=== PATIENT | female | born 1995 | race African-American/Black ===

== ENCOUNTER 2016-03-07 12:06 | Emergency (ER) | payer OTHER ==
[~2016-03-07] VITALS: Ht 157.5 cm; Wt 75.9 kg
--- NOTE | ~2016-03-07 | EKG ---
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
[~2016-03-07 12:06] MED LIST: ACCUNEB SO1.25 MG/1 INH; CERAVE237 ML TP; HYDROXYZINE HCL10 M1 PO; IBUPROFEN 400400 M2 PO; IBUPROFEN 800800 M1 PO; NAPROSYN500 MG PO; TIZANIDINE HCL4 MG PO; TORADOL 10 MG T10 MG PO; TRIAMCINOLONE A80 G2 TOP; ULTRAM 50MG TAB50 MG PO
[2016-03-07] MEDS ORDERED: TRINATE TABLET1 TAB PO (12:32)
[2016-03-07] MEDS ORDERED: AMOXICILLIN 50500 MG PO (12:32)
[2016-03-07 12:52] LABS: URINE BILIRUBIN NEGATIVE (Negative); URINE BLOOD NEGATIVE (Negative); URINE COLOR YELLOW; URINE GLUCOSE-RANDOM* NEGATIVE (Negative); URINE KETONES NEGATIVE (Negative); URINE LEUKOCYTES-REFLEX NEGATIVE (Negative); URINE PROTEIN (DIPSTICK) NEGATIVE (Negative); URINE UROBILINOGEN 0.2 E.U./dl (0.2-1.0)
[2016-03-07 13:07] LABS: BASOPHILS 0.2 % (0.0-2.0); EOSINOPHILS 3.4 % (0.0-3.0); HEMATOCRIT 32.9 % (37.0-47.0); HEMOGLOBIN 11.7 gm/dL (12.0-15.0); LYMPHOCYTES 16.7 % (24.0-44.0); MCH 30.6 pg (26.0-34.0); MCHC 35.5 % (28.0-37.0); MCV 86.3 fL (80.0-100.0); MONOCYTES 4.8 % (1.0-8.0); PLATELET COUNT 224 thou/uL (150-400); POLYS 74.9 % (36.0-66.0); RBC 3.81 mil/uL (4.20-5.00); RDW 13.1 % (10.5-14.5)
[2016-03-07 13:08] LABS: MANUAL DIFF NO
[2016-03-07 13:12] LABS: CALCIUM 8.3 mg/dL (8.5-10.1); CREATININE 0.6 mg/dL (0.6-1.3); POTASSIUM 3.3 mmol/L (3.5-5.1)
[2016-03-07 14:13] VITALS: BP 97/57
== END 2016-03-07 14:14 | disposition home or self-care (01) ==
LOC: ER 12:06
PROVIDERS: Physician Assistant
DX: O26.892 Other specified pregnancy related conditions, second trimester (principal); Z3A.16 16 weeks gestation of pregnancy; E87.6 Hypokalemia; B34.9 Viral infection, unspecified; J45.909 Unspecified asthma, uncomplicated; Z91.018 Allergy to other foods; Z91.010 Allergy to peanuts

== ENCOUNTER 2016-10-02 11:13 | Emergency (ER) | payer OTHER ==
[~2016-10-02] VITALS: Ht 175.3 cm; Wt 85.7 kg
[~2016-10-02 11:13] MED LIST changes: +AMOXICILLIN 50500 MG PO; +DICLEGIS DR 101 EACH PO; +IBUPROFEN 600600 M1 PO; +ONDANSETRON HCL4 M2 PO; +TRINATE TABLET1 TAB PO
[2016-10-02 12:31] LABS: HEMATOCRIT 38.4 % (37.0-47.0); HEMOGLOBIN 13.2 gm/dL (12.0-15.0); MCH 29.2 pg (26.0-34.0); MCHC 34.3 g/dL (28.0-37.0); MCV 85.2 fL (80.0-100.0); PLATELET COUNT 197 thou/uL (150-400); RDW 12.8 % (10.5-14.5); WBC 3.9 thou/uL (4.0-11.0)
[2016-10-02 12:32] LABS: CALCIUM 8.8 mg/dL (8.5-10.1); CREATININE 0.8 mg/dL (0.6-1.0); POTASSIUM 3.6 mmol/L (3.5-5.1)
[2016-10-02 12:39] LABS: MANUAL DIFF YES
[2016-10-02 13:04] LABS: PLATELET ESTIMATE NORMAL; TOTAL CELL COUNT 100
[2016-10-02] MEDS ORDERED: COMPAZINE10 MG PO (14:16)
[2016-10-02 14:36] VITALS: BP 105/58
== END 2016-10-02 14:38 | disposition home or self-care (01) ==
LOC: ER 11:13
PROVIDERS: Physician Assistant
DX: R51 Headache (principal); J45.909 Unspecified asthma, uncomplicated; Z87.891 Personal history of nicotine dependence; Z91.010 Allergy to peanuts; Z91.018 Allergy to other foods

== ENCOUNTER 2017-03-02 02:32 | Emergency (ER) | payer OTHER ==
[~2017-03-02] VITALS: Ht 175.3 cm; Wt 87.1 kg
[~2017-03-02 02:32] MED LIST changes: +COMPAZINE10 MG PO
[2017-03-02 02:53] LABS: URINE BILIRUBIN NEGATIVE (Negative); URINE BLOOD 2+ (Negative); URINE CLARITY CLEAR; URINE COLOR YELLOW; URINE GLUCOSE-RANDOM* NEGATIVE (Negative); URINE KETONES NEGATIVE (Negative); URINE LEUKOCYTES-REFLEX NEGATIVE (Negative); URINE NITRITE-REFLEX NEGATIVE (Negative); URINE PROTEIN (DIPSTICK) NEGATIVE (Negative); URINE SPECIFIC GRAVITY 1.025 (1.005-1.035); URINE UROBILINOGEN 0.2 E.U./dl (0.2-1.0)
[2017-03-02 03:09] LABS: ABSOLUTE NEUTROPHILS 3.3 thou/uL (1.4-8.2); BASOPHILS 0.4 % (0.0-2.0); EOSINOPHILS 2.6 % (0.0-3.0); HEMATOCRIT 42.9 % (37.0-47.0); HEMOGLOBIN 14.5 gm/dL (12.0-15.0); LYMPHOCYTES 42.3 % (24.0-44.0); MCHC 33.8 g/dL (28.0-37.0); MCV 85.8 fL (80.0-100.0); PLATELET COUNT 255 thou/uL (150-400); POLYS 47.7 % (36.0-66.0); RDW 15.3 % (10.5-14.5); WBC 6.9 thou/uL (4.0-11.0)
[2017-03-02 03:09] LABS: MUCUS None Seen strn/LPF (None Seen)
[2017-03-02 03:10] LABS: BACTERIA-REFLEX 1-9 Few /HPF (None Seen); CASTS None Seen /LPF (None Seen); CRYSTALS None Seen /LPF (None Seen); SQUAMOUS 0-3 Few /LPF (0-3); URINE RBC 0-2 Rare /HPF (0-2); URINE WBC-REFLEX None Seen /HPF (0-5)
[2017-03-02 03:18] LABS: CALCIUM 9.1 mg/dL (8.5-10.1); POTASSIUM 3.4 mmol/L (3.5-5.1)
[2017-03-02 03:24] LABS: ALBUMIN 4.2 g/dL (3.4-5.0); TOTAL BILIRUBIN 0.9 mg/dL (<0.1-1.0); TOTAL PROTEIN 7.5 g/dL (6.4-8.2)
[2017-03-02] MEDS ORDERED: IBUPROFEN 800800 M1 PO (04:31)
[2017-03-02] MEDS ORDERED: TRAMADOL 50 MG50 MG PO (04:31)
[2017-10-02] MEDS ORDERED: NAPROSYN500 MG PO (23:59)
== END 2017-03-02 04:37 | disposition home or self-care (01) ==
LOC: ER 02:32
PROVIDERS: Emergency Medicine
DX: R10.2 Pelvic and perineal pain (principal); Z87.891 Personal history of nicotine dependence; J45.909 Unspecified asthma, uncomplicated; L30.9 Dermatitis, unspecified; Z91.010 Allergy to peanuts; Z91.018 Allergy to other foods

== ENCOUNTER 2017-03-28 01:10 | Emergency (ER) | payer OTHER ==
[~2017-03-28] VITALS: Ht 172.7 cm; Wt 81.7 kg
[~2017-03-28 01:10] MED LIST changes: +TRAMADOL 50 MG50 MG PO
[2017-03-28] MEDS ORDERED: VENTOLIN HFA 1818 GM INH (01:25)
[2017-03-28] MEDS ORDERED: ALBUTEROL2.5 MG/31 INH (01:25)
[2017-03-28] MEDS ORDERED: ADVAIR HFA 230M12 GM INH (01:26)
[2017-03-28] MEDS ORDERED: TESSALON PERLE100 MG PO (02:20)
[2017-10-02] MEDS ORDERED: NAPROSYN500 MG PO (23:59)
== END 2017-03-28 02:25 | disposition home or self-care (01) ==
LOC: ER 01:10
DX: J98.8 Other specified respiratory disorders (principal); J45.909 Unspecified asthma, uncomplicated; Z91.041 Radiographic dye allergy status; Z91.018 Allergy to other foods; Z91.010 Allergy to peanuts; Z87.891 Personal history of nicotine dependence

== ENCOUNTER 2017-11-29 00:33 | Emergency (ER) | payer OTHER ==
[~2017-11-29] VITALS: Ht 175.3 cm; Wt 76.7 kg
[~2017-11-29 00:33] MED LIST changes: +ADVAIR HFA 230M12 GM INH; +ALBUTEROL2.5 MG/31 INH; +TESSALON PERLE100 MG PO; +VENTOLIN HFA 1818 GM INH
[2017-11-29 01:12] VITALS: BP 120/57
== END 2017-11-29 01:15 | disposition home or self-care (01) ==
LOC: ER 00:33
DX: M79.641 Pain in right hand (principal); J45.909 Unspecified asthma, uncomplicated; Z87.891 Personal history of nicotine dependence

== ENCOUNTER 2018-10-26 13:43 | Emergency (ER) | payer OTHER ==
[~2018-10-26] VITALS: Ht 172.7 cm; Wt 83.0 kg
[2018-10-26 13:45] VITALS: BP 110/63
[2018-10-26] MEDS ORDERED: PRENATABS RX T1 EAC1 PO (14:28)
== END 2018-10-26 14:15 | disposition home or self-care (01) ==
LOC: ER 13:43
DX: O9A.212 Injury, poisoning and certain other consequences of external causes complicating pregnancy, second trimester (principal); S43.401A Unspecified sprain of right shoulder joint, initial encounter; O99.512 Diseases of the respiratory system complicating pregnancy, second trimester; J45.909 Unspecified asthma, uncomplicated; Z98.890 Other specified postprocedural states; Z91.018 Allergy to other foods; Z91.013 Allergy to seafood; Z91.012 Allergy to eggs; Z91.011 Allergy to milk products; Z87.891 Personal history of nicotine dependence; Z3A.21 21 weeks gestation of pregnancy; X50.0XXA Overexertion from strenuous movement or load, initial encounter; Y93.89 Activity, other specified; Y92.89 Other specified places as the place of occurrence of the external cause; Y99.8 Other external cause status

== ENCOUNTER 2019-02-28 23:06 | Emergency (ER) | payer OTHER ==
[~2019-02-28] VITALS: Ht 175.3 cm; Wt 88.5 kg
[~2019-02-28 23:06] MED LIST changes: +PRENATABS RX T1 EAC1 PO
[2019-02-28] MEDS ORDERED: THRIVITE RX TA1 EACH PO (23:20)
[2019-02-28] MEDS ORDERED: [UNRECOGNIZED DRUG - OTHER] (23:20)
[2019-02-28] MEDS ORDERED: IBU600 MG PO (23:21)
[2019-03-01] MEDS ORDERED: PNV 29-1 TABLE1 EACH PO (00:10)
[2019-03-01] MEDS ORDERED: IRON325 PO (00:12)
[2019-03-01 02:20] VITALS: BP 115/61
== END 2019-03-01 02:20 | disposition home or self-care (01) ==
LOC: ER 23:06
DX: R51 Headache (principal); J45.909 Unspecified asthma, uncomplicated; Z98.890 Other specified postprocedural states; Z87.891 Personal history of nicotine dependence; Z91.018 Allergy to other foods; Z91.010 Allergy to peanuts; Z91.011 Allergy to milk products; Z91.013 Allergy to seafood; Z91.012 Allergy to eggs

== ENCOUNTER 2019-04-22 03:36 | Emergency (ER) | payer OTHER ==
[~2019-04-22] VITALS: Ht 175.3 cm; Wt 97.5 kg
[~2019-04-22 03:36] MED LIST changes: +IBU600 MG PO; +IRON325 PO; +PNV 29-1 TABLE1 EACH PO; +THRIVITE RX TA1 EACH PO; +[UNRECOGNIZED DRUG - OTHER]
[2019-04-22] MEDS ORDERED: TYLENOL EXTRA500 MG PO (03:53)
[2019-04-22 04:22] LABS: ABSOLUTE NEUTROPHILS 3.3 thou/uL (1.4-8.2); BASOPHILS 0.7 % (0.0-2.0); EOSINOPHILS 3.1 % (0.0-3.0); HEMATOCRIT 39.4 % (37.0-47.0); HEMOGLOBIN 12.9 gm/dL (12.0-15.0); LYMPHOCYTES 40.1 % (24.0-44.0); MCH 28.3 pg (26.0-34.0); MCHC 32.8 g/dL (28.0-37.0); MCV 86.5 fL (80.0-100.0); MONOCYTES 4.6 % (1.0-8.0); PLATELET COUNT 376 thou/uL (150-400); POLYS 51.5 % (36.0-66.0); RBC 4.55 mil/uL (4.20-5.00); RDW 15.2 % (10.5-14.5); WBC 6.5 thou/uL (4.0-11.0)
[2019-04-22 04:40] LABS: ANION GAP 13 mmol/L (7-16); BUN 8 mg/dL (7-18); CALCIUM 9.2 mg/dL (8.5-10.1); CHLORIDE 104 mmol/L (98-107); CO2 24 mmol/L (21-32); CREATININE 0.9 mg/dL (0.6-1.0); GLUCOSE 82 mg/dL (74-106); POTASSIUM 3.6 mmol/L (3.5-5.1); SODIUM 141 mmol/L (136-145)
[2019-04-22 04:50] LABS: ALBUMIN 4.4 g/dL (3.4-5.0); MAGNESIUM 2.1 mg/dL (1.8-2.4); SGOT 16 U/L (15-37); SGPT 15 U/L (30-65); TOTAL BILIRUBIN 0.3 mg/dL (<0.1-1.0); TOTAL PROTEIN 7.6 g/dL (6.4-8.2); TROPONIN-I <0.06 ng/mL (<0.06)
[2019-04-22 04:52] LABS: AMP/METHAMP POSITIVE (Negative); BARBITURATES Negative (Negative); BENZODIAZEPINES Negative (Negative); COCAINE Negative (Negative); METHADONE POSITIVE (Negative); OPIATES POSITIVE (Negative); PCP Negative (Negative)
[2019-04-22 05:17] VITALS: BP 134/88
--- NOTE | 2019-04-22 09:08 | EKG ---
[facility] [place] [address] ELECTROCARDIOGRAM REPORT Name: LORI PRINCE Room #: [facility]P [facility]#: [id number] Admission: 04/22/19 Attend Phys: Discharge: 04/22/19 Date of : [birth year] Report #: [id number] THIS REPORT FOR: cc: NO FAMILY PHYSICIAN or PCP NO FAMILY PHYSICIAN or PCP Issa Huber MD 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 04/22/19 [id number] Issa Huber MD, [facility] /EPI
== END 2019-04-22 05:20 | disposition home or self-care (01) ==
LOC: ER 03:36
PROVIDERS: Emergency Medicine
DX: R00.2 Palpitations (principal); R06.02 Shortness of breath; J45.909 Unspecified asthma, uncomplicated; F12.90 Cannabis use, unspecified, uncomplicated; F17.210 Nicotine dependence, cigarettes, uncomplicated; Z79.899 Other long term (current) drug therapy; Z91.018 Allergy to other foods; Z91.010 Allergy to peanuts; Z91.013 Allergy to seafood; Z91.011 Allergy to milk products; Z91.012 Allergy to eggs

== ENCOUNTER 2019-10-24 21:16 | Emergency (ER) | payer OTHER ==
[~2019-10-24] VITALS: Ht 175.3 cm; Wt 79.4 kg
[~2019-10-24 21:16] MED LIST changes: +TYLENOL EXTRA500 MG PO
[2019-10-24 21:18] VITALS: BP 133/59
[2019-10-24] MEDS ORDERED: PERCOCET 5-3251 EACH PO (22:22)
[2019-10-24] MEDS ORDERED: DOXYCYCLINE 10100 MG PO (22:22)
== END 2019-10-24 22:39 | disposition home or self-care (01) ==
LOC: ER 21:16
DX: L02.411 Cutaneous abscess of right axilla (principal); R50.9 Fever, unspecified; R11.10 Vomiting, unspecified; R19.7 Diarrhea, unspecified; J45.909 Unspecified asthma, uncomplicated; Z98.890 Other specified postprocedural states; Z79.899 Other long term (current) drug therapy; Z91.018 Allergy to other foods; Z91.010 Allergy to peanuts; Z91.013 Allergy to seafood; Z91.011 Allergy to milk products; Z91.012 Allergy to eggs; Z87.891 Personal history of nicotine dependence